=== PATIENT | male | born 1955 | race African-American/Black ===

== ENCOUNTER 2023-03-02 09:06 | Day surgery (SDC) | payer MEDICARE ==
[2023-02-27 12:05] VITALS: BMI 26.0
[2023-03-02] MEDS ORDERED: PROPOFOL 20 ML ONE (11:44)
[2023-03-02] MEDS ORDERED: PROPOFOL 40 ML ONE (12:34)
[2023-03-02] MEDS ORDERED: Lidocaine 1% PF 5 ML VIAL ONE (12:34)
== END 2023-03-02 12:20 | disposition home or self-care (01) ==
LOC: CSHSDC 09:06
PROVIDERS: ATTEND Internal Medicine Gastroenterology
PROC: 0DBN8ZZ Excision of Sigmoid Colon, Via Natural or Artificial Opening Endoscopic (ICD-10-PCS; principal; 2023-03-02)
DX: Z12.11 Encounter for screening for malignant neoplasm of colon (principal); K63.5 Polyp of colon; K64.8 Other hemorrhoids; I10 Essential (primary) hypertension; F17.210 Nicotine dependence, cigarettes, uncomplicated; K21.9 Gastro-esophageal reflux disease without esophagitis; Z79.899 Other long term (current) drug therapy
CPT/HCPCS: 88305; J2704